=== PATIENT | male | born 1985 | race American Indian/Alaskan Native ===

== ENCOUNTER 2017-05-31 21:13 | Emergency (ER) | payer BC ==
[2017-05-31 22:02] LABS: Hematocrit 43.9 % (35.5-45.6); Hemoglobin 14.8 gm/dl (11.8-15.2); Mean Corpuscular HGB Conc 34 % (32-34); Mean Corpuscular Hemoglobin 30 pg (28-32); Mean Corpuscular Volume 88 fl (84-94); Platelet Count 194 K/mm3 (140-440); Red Cell Distribution Width 13.6 % (13.2-15.2); White Blood Count 4.7 K/mm3 (4.5-11.0)
[2017-05-31 22:21] LABS: Anion Gap 17 mmol/L; BUN/Creatinine Ratio 14.44; Blood Urea Nitrogen 13 mg/dL (9-20); Calcium 9.5 mg/dL (8.4-10.2); Carbon Dioxide 28 mmol/L (22-30); Chloride 102.1 mmol/L (98-107); Glucose 97 mg/dL (75-100); Sodium 143 mmol/L (137-145)
[2017-05-31 22:47] LABS: Bilirubin,Urine NEG (Negative); Blood,Urine NEG (Negative); Ketones,Urine NEG (Negative); Leukocyte Esterase,Urine NEG (Negative); Mucus,Urine FEW /HPF; Nitrite,Urine NEG (Negative); Protein,Urine <15 mg/dL mg/dL (Negative)
[2017-06-01 04:28] VITALS: BP 116/76
--- NOTE | 2017-06-01 06:47 | Emergency Department Report ---
ED General Adult HPI - General Chief complaint: Urogenital-Male Stated complaint: ABDOMINAL PAIN Time Seen by Provider: 06/01/17 06:40 Source: patient, RN notes reviewed Mode of arrival: Ambulatory Limitations: No Limitations - History of Present Illness Initial comments: This is a 32-year-old male, who was previously unknown to this provider. The patient denies chronic medical conditions, and does not have a local primary care doctor. He presents to the ER with left-sided inguinal pain and swelling since . Today is Thursday. The pain is achy. It increases with palpation. It decreases with rest. It does not radiate anywhere. He denies testicular pain, irritative/subjective urinary symptoms, right lower quadrant abdominal pain, sore throat. The patient does endorse multiple sexual partners , however he reports using protection/condoms. -: Gradual Location: left, lower extremity Radiation: non-radiation Severity scale (0 -10): 6 Quality: aching Improves with: rest Worsens with: movement Associated Symptoms: denies other symptoms, other (no testicular pain, abdominal pain, no dysuria, hematuria or frequency). denies: confusion, chest pain, cough, diaphoresis, fever/chills, headaches, loss of appetite, malaise, nausea/vomiting, rash, shortness of breath, syncope, weakness - Related Data Previous Rx's Medication Instructions Recorded Last Taken Type Ibuprofen [Motrin] 600 mg PO Q8H PRN #30 tablet 06/01/17 Unknown Rx Allergies Allergy/AdvReac Type Severity Reaction Status Date / Time No Known Allergies Allergy Unverified 05/31/17 21:47 ED Review of Systems ROS: Stated complaint: ABDOMINAL PAIN Other details as noted in HPI Comment: per history of present illness ED Past Medical Hx - Past Medical History Previous Medical History?: No - Surgical History Past Surgical History?: No - Social History Smoking Status: Never Smoker Substance Use Type: Alcohol - Medications Home Medications: Home Medications Medication Instructions Recorded Confirmed Last Taken Type Ibuprofen [Motrin] 600 mg PO Q8H PRN #30 tablet 06/01/17 Unknown Rx ED Physical Exam - General Limitations: No Limitations General appearance: alert, in no apparent distress - Head Head exam: Present: atraumatic, normocephalic - Eye Eye exam: Present: normal appearance, EOMI. Absent: nystagmus - ENT ENT exam: Present: normal exam, normal orophraynx, mucous membranes moist, normal external ear exam - Neck Neck exam: Present: normal inspection, full ROM. Absent: tenderness, meningismus - Respiratory Respiratory exam: Present: normal lung sounds bilaterally. Absent: respiratory distress, wheezes, rales, rhonchi, stridor, chest wall tenderness, accessory muscle use, decreased breath sounds, prolonged expiratory - Cardiovascular Cardiovascular Exam: Present: regular rate, normal rhythm, normal heart sounds. Absent: bradycardia, tachycardia, irregular rhythm, systolic murmur, diastolic murmur, rubs, gallop - GI/Abdominal GI/Abdominal exam: Present: soft, normal bowel sounds. Absent: distended, tenderness, guarding, rebound, rigid - Rectal Rectal exam: Present: deferred - exam: Present: normal inspection, other (escorted by nurse Deniz Watkins). Absent : testicular tenderness External exam: Present: normal external exam, other (there is no testicular tenderness. There is normal testicular lie bilaterally. There is normal cremasteric reflex bilaterally.) - Extremities Exam Extremities exam: Present: normal inspection, full ROM, normal capillary refill , other (there is left-sided inguinal adenopathy. It is nontender. There is no cellulitis, crepitus. There is no induration. 2+ pulses noted in the bilateral upper and lower extremities, compartments are soft, there is no perenium tenderness.). Absent: pedal edema, joint swelling, calf tenderness - Back Exam Back exam: Present: normal inspection - Neurological Exam Neurological exam: Present: alert, oriented X3, normal gait, other (Extraocular movements intact. Tongue midline. No facial droop. Facial sensation intact to light touch in the V1, V2, V3 distribution bilaterally. 5 and 5 strength in 4 extremities.. Sensation is intact to light touch in 4 extremities.). Absent : motor sensory deficit - Psychiatric Psychiatric exam: Present: normal affect, normal mood - Skin Skin exam: Present: warm, dry, intact, normal color. Absent: rash ED Course Vital Signs 05/31/17 06/01/17 06/01/17 21:44 04:27 04:31 Temperature 98.3 F Pulse Rate 58 L 61 Respiratory 18 16 16 Rate Blood Pressure 115/72 Blood Pressure 116/76 [Right] O2 Sat by Pulse 99 98 98 Oximetry ED Medical Decision Making - Lab Data Result diagrams: 05/31/17 21:53 05/31/17 21:53 Vital Signs 05/31/17 06/01/17 06/01/17 21:44 04:27 04:31 Temperature 98.3 F Pulse Rate 58 L 61 Respiratory 18 16 16 Rate Blood Pressure 115/72 Blood Pressure 116/76 [Right] O2 Sat by Pulse 99 98 98 Oximetry Labs 05/31/17 05/31/17 05/31/17 21:53 21:53 22:20 WBC 4.7 RBC 5.00 Hgb 14.8 Hct 43.9 MCV 88 MCH 30 MCHC 34 RDW 13.6 Plt Count 194 Sodium 143 Potassium 4.0 Chloride 102.1 Carbon Dioxide 28 Anion Gap 17 BUN 13 Creatinine 0.9 Estimated GFR > 60 BUN/Creatinine Ratio 14.44 Glucose 97 Calcium 9.5 Urine Color Yellow Urine Turbidity Clear Urine pH 6.0 Ur Specific Gilbert 1.027 Urine Protein <15 mg/dl Urine Glucose (UA) Neg Urine Ketones Neg Urine Blood Neg Urine Nitrite Neg Urine Bilirubin Neg Urine Urobilinogen 2.0 Ur Leukocyte Esterase Neg Urine WBC (Auto) 2.0 Urine RBC (Auto) 1.0 Urine Mucus Few - Medical Decision Making Differential diagnosis: Adenopathy, gonorrhea, chlamydia, Assessment and plan: 32-year-old male with unilateral left-sided adenopathy. Has an unremarkable physical examination otherwise, urinalysis does not corroborate or suggest urinary tract infection, and he denies irritative/ obstructive urinary symptoms. He declines pain medication at this time. There does not appear to be any emergent condition at this time, patient will be discharged with instructions to follow up with outpatient primary care, return precautions are reviewed. Given lack of discharge, urinalysis results, lack of testicular symptoms, I will not cover the patient empirically for STDs. Critical care attestation.: If time is entered above; I have spent that time in minutes in the direct care of this critically ill patient, excluding procedure time. ED Disposition Clinical Impression: Adenopathy Disposition: - TO HOME OR SELFCARE Is pt being admited?: No Does the pt Need Aspirin: No Condition: Stable Instructions: Lymphadenopathy (ED) Additional Instructions: Take the pain medication as directed. Apply warm compresses to the affected area. Follow up with a primary care doctor within the next month. Return to the ER right away with new pain, worsening pain, migration of pain, fevers, chills, lethargy, irritability, streaking, pain, pus, nausea or vomiting, inability to tolerate liquid feeds. Prescriptions: Ibuprofen [Motrin] 600 mg PO Q8H PRN #30 tablet PRN Reason: Pain Referrals: PRIMARY CARE, [Primary Care Provider] - 3-5 Days YUN SANCHEZ MD [Staff Physician] - 3-5 Days [facility] [Provider Group] - 3-5 Days Forms: Work/School Release Form(ED)
== END 2017-06-01 08:22 | disposition home or self-care (01) ==
LOC: ED 21:13
DX: R59.9 Enlarged lymph nodes, unspecified (principal)
CPT/HCPCS: 36415; 80048; 81001; 85027; 99283

== ENCOUNTER 2017-06-06 05:47 | Emergency (ER) | payer BC ==
[2017-06-06 08:12] VITALS: BP 107/64
--- NOTE | 2017-06-06 10:06 | Emergency Department Report ---
ED Male HPI - General Chief complaint: Urogenital-Male Stated complaint: PENILE PAIN Time Seen by Provider: 06/06/17 08:59 Source: patient Mode of arrival: Ambulatory Limitations: No Limitations - History of Present Illness Initial comments: pt state painful penile lesion that errupt after having unprotected sexual intercourse x 1 week .pt denies any rash at present .denies any penile discharge pt denies any itching at present MD Complaint: other (lesion on penis ) Onset/Timin -: days(s) Location: penis Radiation: none Severity scale (0 -10): 0 denies other symptoms - Related Data Sexually active: Yes Previous Rx's Medication Instructions Recorded Last Taken Type Ibuprofen [Motrin] 600 mg PO Q8H PRN #30 tablet 06/01/17 Unknown Rx Valacyclovir HCl [Valtrex] 1,000 mg PO BID #10 tab 06/06/17 Unknown Rx Allergies Allergy/AdvReac Type Severity Reaction Status Date / Time No Known Allergies Allergy Unverified 05/31/17 21:47 ED Review of Systems ROS: Stated complaint: PENILE PAIN Other details as noted in HPI Constitutional: denies: chills, fever Eyes: denies: eye pain, eye discharge, vision change ENT: denies: ear pain, throat pain Respiratory: denies: cough, shortness of breath, wheezing Cardiovascular: denies: chest pain, palpitations Endocrine: no symptoms reported Gastrointestinal: denies: abdominal pain, nausea, diarrhea Genitourinary: other (penile lesion ). denies: urgency, dysuria Musculoskeletal: denies: back pain, joint swelling, arthralgia Skin: denies: rash, lesions Neurological: denies: headache, weakness, paresthesias Psychiatric: denies: anxiety, depression Hematological/Lymphatic: denies: easy bleeding, easy bruising ED Past Medical Hx - Past Medical History Previous Medical History?: No - Surgical History Past Surgical History?: No - Social History Smoking Status: Never Smoker - Medications Home Medications: Home Medications Medication Instructions Recorded Confirmed Last Taken Type Ibuprofen [Motrin] 600 mg PO Q8H PRN #30 tablet 06/01/17 Unknown Rx Valacyclovir HCl [Valtrex] 1,000 mg PO BID #10 tab 06/06/17 Unknown Rx ED Physical Exam - General Limitations: No Limitations General appearance: alert, in no apparent distress - Head Head exam: Present: atraumatic, normocephalic - Eye Eye exam: Present: normal appearance - ENT ENT exam: Present: mucous membranes moist - Neck Neck exam: Present: normal inspection - Respiratory Respiratory exam: Present: normal lung sounds bilaterally. Absent: respiratory distress - Cardiovascular Cardiovascular Exam: Present: regular rate, normal rhythm. Absent: systolic murmur, diastolic murmur, rubs, gallop - GI/Abdominal GI/Abdominal exam: Present: soft, normal bowel sounds - Rectal Rectal exam: Present: deferred - External exam: Present: lesions - Extremities Exam Extremities exam: Present: normal inspection - Back Exam Back exam: Present: normal inspection - Neurological Exam Neurological exam: Present: alert, oriented X3 - Psychiatric Psychiatric exam: Present: normal affect, normal mood - Skin Skin exam: Present: warm, dry, intact, normal color. Absent: rash ED Course Vital Signs 06/06/17 06/06/17 06:08 08:09 Temperature 98.9 F 97.6 F Pulse Rate 68 49 L Respiratory 18 14 Rate Blood Pressure 120/79 Blood Pressure 107/64 [Right] O2 Sat by Pulse 99 99 Oximetry ED Medical Decision Making - Medical Decision Making herpes simplex II base on examination .pt refuse to have std testing state he will follow up in the health department or urgent care clinic on Thursday , May.will give pt rx for herpes simples II Critical care attestation.: If time is entered above; I have spent that time in minutes in the direct care of this critically ill patient, excluding procedure time. ED Disposition Clinical Impression: Herpes simplex Disposition: DC-01 TO HOME OR SELFCARE Is pt being admited?: No Does the pt Need Aspirin: No Condition: Stable Instructions: Genital Herpes Simplex (ED) Prescriptions: Valacyclovir HCl [Valtrex] 1,000 mg PO BID #10 tab Referrals: PRIMARY CARE, [Primary Care Provider] - 3-5 Days [facility] [Outside] - 3-5 Days Time of Disposition: 10:11
[2017-06-06 10:20] LABS: Bilirubin,Urine NEG (Negative); Blood,Urine NEG (Negative); Ketones,Urine NEG (Negative); Leukocyte Esterase,Urine NEG (Negative); Mucus,Urine FEW /HPF; Nitrite,Urine NEG (Negative); Protein,Urine <15 mg/dL mg/dL (Negative); Urobilinogen,Urine < 2.0 mg/dL (<2.0)
== END 2017-06-06 10:20 | disposition home or self-care (01) ==
LOC: ED 05:47
DX: B00.9 Herpesviral infection, unspecified (principal)
CPT/HCPCS: 81001; 99282

== ENCOUNTER 2018-11-28 07:08 | Emergency (ER) | payer BC, OTHER ==
[2018-11-28 07:14] VITALS: BP 127/86
[2018-11-28] MEDS ORDERED: TESSALON PERLES PO ONE (07:56)
[2018-11-28] MEDS ORDERED: IBUPROFEN PO ONE (07:56)
--- NOTE | 2018-11-28 07:57 | XRay Report ---
PROCEDURE: XR CHEST ROUTINE 2V TECHNIQUE: PA and lateral views of the chest were obtained. HISTORY: Cough, congestion COMPARISONS: None FINDINGS: The lungs are clear. The heart size and vascularity appear normal. Pleural fluid is not seen. The ske letal structures appear well-maintained. IMPRESSION: Within normal limits.. This document is electronically signed by Syd Xie MD., November 28 2018 07:54:56 AM ET
--- NOTE | 2018-11-28 07:57 | Emergency Department Report ---
- General Chief Complaint: Upper Respiratory Infection Stated Complaint: GENERAL SICKNESS Time Seen by Provider: 11/28/18 07:43 Source: patient Mode of arrival: Ambulatory Limitations: No Limitations - History of Present Illness Initial Comments: This is a 33-year-old male nontoxic, well nourished in appearance, no acute signs of distress presents to the ED with c/o of productive cough, body aches, rhinorrhea, nasal congestion x1 week. Patient describes productive cough as yellow mucus production. Patient denies any sick contact. Patient denies any recent travels, long car, recent hospital stays. Patient denies any calf pain or calf tenderness. Patient denies any chest pain, short of breath, fever, chills, nausea, vomiting, hemoptysis, numbness, tingling, headache or stiff neck. Patient denies any allergies or PMH. MD Complaint: cough, rhinorrhea, nasal congestion -: week(s) (1) Severity scale (0 -10): 0 Consistency: constant Improves With: nothing Worsens With: nothing Associated Symptoms: rhinorrhea, nasal congestion, cough. denies: fever, chills, myalgias, diaphoresis, headache, sore throat, stiff neck, chest pain, shortness of breath, abdominal pain, nausea, vomiting, diarrhea, dysuria, rash, confusion, right sweats, weight loss, epistaxis, hoarseness, ear pain Treatments Prior to Arrival: none - Related Data Previous Rx's Medication Instructions Recorded Last Taken Type Ibuprofen [Motrin] 600 mg PO Q8H PRN #30 tablet 06/01/17 Unknown Rx Valacyclovir HCl [Valtrex] 1,000 mg PO BID #10 tab 06/06/17 Unknown Rx Azithromycin [Zithromax Z-DAYAN] 250 mg PO DAILY #6 tablet 11/28/18 Unknown Rx Benzonatate [Tessalon Perle] 100 mg PO Q8H PRN #20 capsule 11/28/18 Unknown Rx Ibuprofen [Motrin] 600 mg PO Q8H PRN #20 tablet 11/28/18 Unknown Rx Allergies Allergy/AdvReac Type Severity Reaction Status Date / Time No Known Allergies Allergy Unverified 05/31/17 21:47 ED Review of Systems ROS: Stated complaint: GENERAL SICKNESS Other details as noted in HPI Constitutional: denies: chills, fever Eyes: denies: eye pain, eye discharge, vision change ENT: congestion. denies: ear pain, throat pain Respiratory: cough. denies: shortness of breath, wheezing Cardiovascular: denies: chest pain, palpitations Endocrine: no symptoms reported Gastrointestinal: denies: abdominal pain, nausea, diarrhea Genitourinary: denies: urgency, dysuria Musculoskeletal: denies: back pain, joint swelling, arthralgia Skin: denies: rash, lesions Neurological: denies: headache, weakness, paresthesias Psychiatric: denies: anxiety, depression Hematological/Lymphatic: denies: easy bleeding, easy bruising ED Past Medical Hx - Social History Smoking Status: Current Every Day Smoker Substance Use Type: None - Medications Home Medications: Home Medications Medication Instructions Recorded Confirmed Last Taken Type Ibuprofen [Motrin] 600 mg PO Q8H PRN #30 tablet 06/01/17 Unknown Rx Valacyclovir HCl [Valtrex] 1,000 mg PO BID #10 tab 06/06/17 Unknown Rx Azithromycin [Zithromax Z-DAYAN] 250 mg PO DAILY #6 tablet 11/28/18 Unknown Rx Benzonatate [Tessalon Perle] 100 mg PO Q8H PRN #20 capsule 11/28/18 Unknown Rx Ibuprofen [Motrin] 600 mg PO Q8H PRN #20 tablet 11/28/18 Unknown Rx ED Physical Exam - General Limitations: No Limitations General appearance: alert, in no apparent distress - Head Head exam: Present: atraumatic, normocephalic - Eye Eye exam: Present: normal appearance - Neck Neck exam: Present: normal inspection, full ROM. Absent: tenderness, meningismus, lymphadenopathy - Respiratory Respiratory exam: Present: normal lung sounds bilaterally. Absent: respiratory distress, wheezes, rales, rhonchi, stridor, chest wall tenderness, accessory muscle use, decreased breath sounds, prolonged expiratory - Cardiovascular Cardiovascular Exam: Present: regular rate, normal rhythm, normal heart sounds. Absent: bradycardia, tachycardia, irregular rhythm, systolic murmur, diastolic murmur, rubs, gallop - Extremities Exam Extremities exam: Present: normal inspection, full ROM - Back Exam Back exam: Present: normal inspection, full ROM - Neurological Exam Neurological exam: Present: alert, oriented X3 - Psychiatric Psychiatric exam: Present: normal affect, normal mood - Skin Skin exam: Present: warm, dry, intact, normal color. Absent: rash ED Course Vital Signs 11/28/18 07:13 Temperature 98.5 F Pulse Rate 86 Respiratory 16 Rate Blood Pressure 127/86 O2 Sat by Pulse 97 Oximetry - Reevaluation(s) Reevaluation #1: 11/28/18 07:56 Patient is speaking in full sentences with no signs of distress noted. ED Medical Decision Making - Medical Decision Making This is a 33-year-old male that presents with bronchitis. Patient is stable and was examined by me. Chest x-ray has been obtained and dictated by radiologist with normal exam. Patient is notified of x-ray results with no questions noted. Due to patient having symptoms of upper respiratory infection and worsening I will treat patient empirically with zpak. Patient was instructed to increase hydration, rest and take Motrin for fever episodes. Patient received motrin and tesslone perrls in the ED. Vitals stable. Patient is nonfebrile and normal heart rate. Patient was instructed Follow-up with a primary care doctor in 3-5 days or if symptoms worsen and continue return to emergency room as soon as possible. At time time of discharge, the patient does not seem toxic or ill in appearance. No acute signs of distress noted. Patient agrees to discharge treatment plan of care. No further questions noted by the patient. Critical care attestation.: If time is entered above; I have spent that time in minutes in the direct care of this critically ill patient, excluding procedure time. ED Disposition Clinical Impression: Bronchitis Disposition: DC-01 TO HOME OR SELFCARE Is pt being admited?: No Does the pt Need Aspirin: No Condition: Stable Instructions: Acute Bronchitis (ED) Additional Instructions: Follow-up with a primary care doctor in 3-5 days or if symptoms worsen and continue return to emergency room as soon as possible. Prescriptions: Ibuprofen [Motrin] 600 mg PO Q8H PRN #20 tablet PRN Reason: Pain Benzonatate [Tessalon Perle] 100 mg PO Q8H PRN #20 capsule PRN Reason: Cough Azithromycin [Zithromax Z-DAYAN] 250 mg PO DAILY #6 tablet Referrals: PRIMARY CAREMD [Referring] - 3-5 Days EDWAR WRIGHT MD [Staff Physician] - 3-5 Days [facility] [Outside] - 3-5 Days [facility] [Outside] - 3-5 Days Forms: Work/School Release Form(ED)
== END 2018-11-28 08:16 | disposition home or self-care (01) ==
LOC: ED 07:08
DX: J40 Bronchitis, not specified as acute or chronic (principal); F17.200 Nicotine dependence, unspecified, uncomplicated
CPT/HCPCS: 71046; 99283